=== PATIENT | male | born 1980 ===

== ENCOUNTER 2017-10-29 08:40 | Day surgery (SDC) | payer OTHER ==
[~2017-10-29 08:40] MED LIST: Buffered Lidocaine 0.9% SYRIN* 5 ML/SYR SYRINGE INTRADERM ONE
[2017-10-29] MEDS ORDERED: Midazolam* 1 MG/ML 5 ML VIAL (5 MG) ONE (09:31)
[2017-10-29] MEDS ORDERED: fentaNYL* 50 MCG/ML 2 ML VIAL (100 MCG VIAL) ONE (09:31)
[2017-10-29] MEDS ORDERED: Bupivacaine 0.25% SDV* 30 ML ONE (10:18)
[2017-10-29] MEDS ORDERED: Naloxone* 0.4 MG/ML 1 ML VIAL IV PRN (10:42)
[2017-10-29 11:30] VITALS: BP 130/79
--- NOTE | 2017-10-29 16:35 | OP ---
DATE OF OPERATION: 10/29/17 [facility] DATE OF : 80 SURGEON: Khang Foy MD JOB COST ESTIMATOR: PAT Johnston ANESTHESIOLOGIST: Marleny Jama MD ANESTHESIA: Local MAC. PRE-OP DIAGNOSIS: Right dorsal index finger proximal interphalangeal mass. 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 OPERATIVE PROCEDURE: Excision of right deep index finger mass. INDICATIONS: Johan has had a progressively enlarging mass. The finger works fine, but he has quite large over 1-cm mass. We talked about risks and benefits. He wanted to proceed. ESTIMATED BLOOD LOSS: 2 mL. COMPLICATIONS: None. FINDINGS: As expected. DESCRIPTION OF PROCEDURE: Johan was seen in the preoperative holding area. The correct side, site, and procedure were identified. We came back to the operating room. The arm was prepped and draped in the usual fashion. A time- out was performed. I exsanguinated the finger with the Tourni-Cot and left it on proximally throughout the procedure. I made a curvilinear incision over the dorsoradial aspect of the PIP joint. Full-thickness flaps were raised and the marginal excision was performed. The mass went deep to the extensor tendon in the interval between the lateral bed and the central slit. It was excised in its entirety and came out as one nice big piece. I used a curette and the rongeur to clean up any remaining fragments. Hemostasis was obtained with a bipolar cautery. The wound was closed with 4-0 nylon suture and dressed with Xeroform, 1-inch Niles, and a Coban dressing. The Tourni-Cot was released during placement of the dressing and the finger pinked up immediately. He was taken to the recovery room in stable condition. [id number]/[facility] #: [id number] MTDD
== END 2017-10-29 11:45 | disposition home or self-care (01) ==
LOC: OREAST 08:40
PROVIDERS: ATTEND Orthopaedic Surgery Hand Surgery
DX: D48.1 Neoplasm of uncertain behavior of connective and other soft tissue (principal); I10 Essential (primary) hypertension
CPT/HCPCS: 88304; J2250; J3010